=== PATIENT | female | born 1960 | race Caucasian/White ===

== ENCOUNTER → 2019-11-24 08:33 | Outpatient (CLI) | payer OTHER, SELFPAY ==
--- NOTE | ~2019-11-24 | CT_ITS ---
EXAMINATION: CT abdomen pelvis w con INDICATION: Lymphedema, constipation TECHNIQUE: Computed tomographic images of the abdomen and pelvis were obtained after the administrati on of 100 cc of Omnipaque 350 intravenous contrast. The dose-length product (DLP) was 1057.99 mGy-cm. Automated exposure control and iterative reconstruction technique were employed. COMPARISON: None available FINDINGS: Minimal dependent atelectasis is present in the lung bases. The heart size is normal. The l iver is diffusely low in attenuation when compared with the spleen, consistent with hepatic steatosis . The spleen, pancreas, gallbladder, and adrenal glands are normal. The kidneys are unremarkable. No pathologically enlarged abdominal or pelvic lymph nodes are identified. There is no free intraperiton eal gas or evidence of bowel obstruction. There is mild lumbar spondylosis. There is a tiny fat-conta ining umbilical hernia. IMPRESSION: 1. No CT correlate for the patient's symptoms. 2. Diffuse hepatic steatosis. Reviewed, dictated and finalized at location A.
== END ==
PROVIDERS: PCP Family Medicine; Visit Provider Family Medicine
DX: I89.0 Lymphedema, not elsewhere classified (principal); K76.0 Fatty (change of) liver, not elsewhere classified
CPT/HCPCS: 74177; Q9967

== ENCOUNTER 2019-12-02 07:17 | Outpatient (CLI) | payer OTHER, SELFPAY ==
--- NOTE | ~2019-12-02 | MM_ITS ---
EXAMINATION: MM screening [facility] BI w charline HISTORY: Screening mammogram TECHNIQUE: Craniocaudal and mediolateral oblique 3-D tomosynthesis images were obtained and synthetic 2-D images were generated. CAD analysis was submitted and interpreted. COMPARISON: 07/24/2018, 07/22/2017, 07/26/2016, 07/19/2016 BREAST PARENCHYMAL COMPOSITION: There are scattered areas of fibroglandular density. FINDINGS: There is no evidence of suspicious mass, calcification, or architectural distortion to sugg est malignancy in either breast. There has been no suspicious interval change. IMPRESSION: 1. No mammographic evidence of malignancy. 2. Recommend routine screening mammography in one year. BI-RADS Category 1: Negative Reviewed, dictated and finalized at location A.
== END 2019-12-02 07:18 | disposition home or self-care (01) ==
LOC: ANHIMG 07:18
PROVIDERS: PCP Family Medicine; Visit Provider Family Medicine
DX: Z12.31 Encounter for screening mammogram for malignant neoplasm of breast (principal)
CPT/HCPCS: 77063; 77067

== ENCOUNTER 2019-12-21 06:56 | Outpatient (CLI) | payer OTHER, SELFPAY ==
--- NOTE | ~2019-12-21 | XR_ITS ---
XR lumbar spine 6V w bending 12/21/2019 07:13 Indication: Back pain Procedure: 7 views lumbar spine Comparison: No prior studies for comparison. Findings: There is disc narrowing at L3-4, L4-5 and L5-S1. There is. Degenerative Spondylolisthesis a t L4-5. There are facet degenerative changes L4-5 and L5-S1. No significant alteration of alignment with flexion/extension. Pedicles intact. Sacral foramen are sy mmetric. Impression: 1: Mild lumbar spondylosis. Reviewed, dictated and finalized at location B. Impression: 1: Mild lumbar spondylosis.
== END 2019-12-21 06:57 | disposition home or self-care (01) ==
LOC: ANHIMG 06:58
PROVIDERS: PCP Family Medicine; Visit Provider Family Medicine
DX: M54.32 Sciatica, left side (principal); M47.816 Spondylosis without myelopathy or radiculopathy, lumbar region
CPT/HCPCS: 72114

== ENCOUNTER → 2020-01-05 08:05 | Outpatient (CLI) | payer OTHER, SELFPAY ==
--- NOTE | ~2020-01-05 | XR_ITS ---
EXAMINATION: XR knee LT 3V DATE: 01/05/2020 08:22 INDICATION: Left knee pain. TECHNIQUE: 3 views of left knee were obtained. COMPARISON: None. FINDINGS: Bone alignment is normal. No fracture. There is mild tricompartmental osteoarthritis. There is a small knee joint effusion. IMPRESSION: 1. Mild left knee osteoarthritis. 2. Small left knee joint effusion. Reviewed, dictated and finalized at location A.
== END ==
PROVIDERS: Visit Provider Family Medicine
DX: M17.12 Unilateral primary osteoarthritis, left knee (principal); M25.462 Effusion, left knee
CPT/HCPCS: 73562

== ENCOUNTER 2020-12-04 07:16 | Outpatient (CLI) | payer OTHER, SELFPAY ==
--- NOTE | ~2020-12-04 | MM_ITS ---
EXAMINATION: MM screening [facility] w [facility] HISTORY: Screening TECHNIQUE: Craniocaudal and mediolateral oblique 3-D tomosynthesis images were obtained and synthetic 2-D images were generated. CAD analysis was submitted and interpreted. COMPARISON: Comparison to multiple prior studies sequentially, with oldest reviewed study dated 07/18. BREAST PARENCHYMAL COMPOSITION: There are scattered areas of fibroglandular density. FINDINGS: There is no evidence of suspicious mass, calcification, or architectural distortion to sugg est malignancy in either breast. There has been no suspicious interval change. IMPRESSION: 1. No mammographic evidence of malignancy. 2. Recommend routine screening mammography in one year. BI-RADS Category 1: Negative Reviewed, dictated and finalized at location A.
== END 2020-12-04 07:17 | disposition home or self-care (01) ==
LOC: ANHIMG 07:19
PROVIDERS: PCP Family Medicine; Visit Provider Family Medicine
DX: Z12.31 Encounter for screening mammogram for malignant neoplasm of breast (principal)
CPT/HCPCS: 77063; 77067

== ENCOUNTER 2022-01-09 07:36 | Outpatient (CLI) | payer OTHER, SELFPAY ==
--- NOTE | ~2022-01-09 | DEXA_ITS ---
Bone Density Report Name: ZOFIA MOSES Age: 61 Sex: Female Ethnicity: White Date of : 1960 Indication: postmenopausal; screening for osteoporosis; hysterectomy; Referring Provider: RAQUEL CARRANZA Study: Bone densitometry was performed. Exam Date: January 09, 2022 Accession number: [id number] Bone Density: Region BMD T-score Z-score Classification AP Spine(L1-L4) 1.171 1.1 2.8 Normal Femoral Neck (Left) 0.848 0.0 1.4 Normal Total Hip (Left) 1.090 1.2 2.4 Normal Femoral Neck (Right) 0.813 -0.3 1.1 Normal Total Hip (Right) 1.007 0.5 1.7 Normal Total Hip Mean 1.049 0.9 2.1 Normal World Health Organization criteria for BMD impression classify patients as: Normal (T-score at or above -1.0), Osteopenia (T-score between -1.0 and -2.5), or Osteoporosis (T-score at or below -2.5). 10-year Fracture Risk: FRAX not reported because: All T-scores for Spine Total, Hip Total, Femoral Neck at or above -1.0 Clinical Information Provided by Patient: Has used the following medications: HRT (i.e. estrogen/hormone therapy), Vitamin D, Calcium Has the following medical conditions: Hysterectomy Patient maximum height was 60 Menopause Age: 49 No regular weight bearing exercise Does not regularly consume dairy products Onset of menses at age 11 Number of children 1 Impression: The patient has normal bone mass. Discussion: BONE DENSITY IS ABOVE THE MINIMUM DESIRABLE LEVEL AT ALL SKELETAL SITES TESTED. This patient?s bone mineral density is above the minimum desirable level (T-score -1.0 or better) at all sites measured. The patient should follow a healthful lifestyle (good nutrition with adequate calcium and vitamin D, and appropriate weight-bearing exercise). Follow-Up: Consider repeating this study in 5 years or sooner if there is some new clinical indication. Reported by: [facility] on 01/10/2022 3:39:00 PM. Reviewed, dictated and finalized at location AChe OLIVEROS
--- NOTE | ~2022-01-09 | MM_ITS ---
EXAMINATION: MM screening [facility] BI w [facility] HISTORY: Screening mammogram TECHNIQUE: Craniocaudal and mediolateral oblique 3-D tomosynthesis images were obtained and synthetic 2-D images were generated. CAD analysis was submitted and interpreted. COMPARISON: 12/04/2020, 12/02/2019, 07/24/2018 BREAST PARENCHYMAL COMPOSITION: There are scattered areas of fibroglandular density. FINDINGS: No suspicious mass, calcification, or architectural distortion are identified in either dung ast to suggest malignancy. There has been no suspicious interval change. IMPRESSION: 1. No mammographic evidence of malignancy. 2. Recommend routine screening mammography in one year. BI-RADS Category 1: Negative Reviewed, dictated and finalized at location A.
== END 2022-01-09 07:37 | disposition home or self-care (01) ==
LOC: ANHIMG 07:38
PROVIDERS: PCP Family Medicine; Visit Provider Physician Assistant
DX: Z12.31 Encounter for screening mammogram for malignant neoplasm of breast (principal); Z13.820 Encounter for screening for osteoporosis; Z78.0 Asymptomatic menopausal state
CPT/HCPCS: 77063; 77067; 77080

== ENCOUNTER 2023-10-02 09:02 | Outpatient (CLI) | payer MEDICARE, SELFPAY ==
--- NOTE | ~2023-10-02 | MM_ITS ---
EXAMINATION: MM screening [facility] BI w [facility] HISTORY: Screening mammogram TECHNIQUE: Craniocaudal and mediolateral oblique 3-D tomosynthesis images were obtained and synthetic 2-D images were generated. CAD analysis was submitted and interpreted. COMPARISON: 01/09/2022, 12/04/2020, 12/02/2019 BREAST PARENCHYMAL COMPOSITION:Not Dense. There are scattered areas of fibroglandular density. FINDINGS: No suspicious mass, calcification, or architectural distortion are identified in either dung ast to suggest malignancy. There has been no suspicious interval change. IMPRESSION: No mammographic evidence of malignancy. Recommend routine screening mammography in one year. BI-RADS Category 1: Negative Reviewed, dictated and finalized at location .
== END 2023-10-02 09:03 | disposition home or self-care (01) ==
PROVIDERS: PCP Family Medicine; Visit Provider Physician Assistant Medical
DX: Z12.31 Encounter for screening mammogram for malignant neoplasm of breast (principal)
CPT/HCPCS: 77063; 77067